=== PATIENT | male | born 1950 | race Caucasian/White ===

== ENCOUNTER 2020-05-13 13:50 | Observation (INO) | payer MEDICARE, SELFPAY ==
[~2020-05-13] VITALS: Ht 175.3 cm; Wt 90.7 kg
[~2020-05-13 13:50] MED LIST: ASPIRIN CHEWABL81 MG PO; ELIQUIS5 MG PO; LEVAQUIN500 MG PO; METOPROLOL SUCC25 MG PO; MULTAQ 400 MG400 MG PO; SIMVASTATIN20 MG PO
[2020-05-13] MEDS ORDERED: ELIQUIS5 MG PO (16:24)
[2020-05-13] MEDS ORDERED: CRESTOR 10 MG T10 MG PO (16:25)
[2020-05-13] MEDS ORDERED: LOPRESSOR100 MG PO (16:25)
[2020-05-13] MEDS ORDERED: DILTIAZEM 24HR120 M1 PO (16:26)
[2020-05-15] MEDS ORDERED: TIZANIDINE HCL4 MG PO (09:52)
[2020-05-15] MEDS ORDERED: HYDROCODON-ACE1 EAC4 PO (09:52)
== END 2020-05-15 11:55 | disposition home or self-care (01) ==
LOC: ER1 13:50 → MED SURG 4 15:35 → CDU 15:35 → MED SURG 4 05-14 00:52
PROVIDERS: ADMIT Surgery
DX: J93.9 Pneumothorax, unspecified (principal); S22.39XA Fracture of one rib, unspecified side, initial encounter for closed fracture; I48.91 Unspecified atrial fibrillation; E78.5 Hyperlipidemia, unspecified; Z95.0 Presence of cardiac pacemaker; Z88.8 Allergy status to other drugs, medicaments and biological substances; Z79.899 Other long term (current) drug therapy; Z20.822 Contact with and (suspected) exposure to COVID-19; W22.8XXA Striking against or struck by other objects, initial encounter
CPT/HCPCS: 71045; 71111; 73080; 90471; 90714; 90715; 93005; 94760; 99284; G0378; U0002

== ENCOUNTER → 2021-07-02 | Outpatient (CLI) | payer MEDICARE ==
[~2021-07-02] MED LIST changes: +CRESTOR 10 MG T10 MG PO; +DILTIAZEM 24HR120 M1 PO; +HYDROCODON-ACE1 EAC4 PO; +LOPRESSOR100 MG PO; +TIZANIDINE HCL4 MG PO
== END ==
LOC: KOH-I 14:37
DX: J20.9 Acute bronchitis, unspecified (principal); J30.89 Other allergic rhinitis
CPT/HCPCS: 71046